=== PATIENT | female | born 1980 | race Caucasian/White ===

== ENCOUNTER 2020-12-15 00:23 | Emergency (ER) | payer OTHER ==
[2020-12-15 01:25] LABS: BILIRUBIN NEGATIVE (NEGATIVE); BLOOD 3+ Ery/uL (NEGATIVE); CLARITY CLEAR (CLEAR); COLOR YELLOW (YELLOW); GLUCOSE (U) NORMAL (NORMAL); LEUKOCYTES NEGATIVE Leu/uL (NEGATIVE); NITRITE NEGATIVE (NEGATIVE); PROTEIN 1+ mg/dL (NEGATIVE); SPECIFIC GRAVITY >=1.030 (1.001-1.030)
[2020-12-15 01:34] LABS: BACTERIA 3+; URINARY RBC TNTC
[2020-12-15 02:11] LABS: BASOPHIL 0.3 % (0-2); HCT 42.6 % (37.0-47.0); HGB 14.2 g/dl (12.5-16.0); LYMPHOCYTE 16.1 % (15-48); MCH 30.9 pg (25.0-31.0); MCHC 33.3 g/dL (32.0-36.0); MCV 92.6 fL (78.0-100.0); MONOCYTE 6.1 % (0-12); NEUTROPHIL 75.1 % (41-80); NRBC 0; PLT 271 K/uL (150-400); RDW 13.5 % (11.5-14.0)
[2020-12-15 02:28] LABS: ALBUMIN 3.6 g/dL (3.4-5.0); BILIRUBIN - TOTAL 0.2 mg/dL (0.2-1.0); BUN/CREAT RATIO (CALC) 19.4 RATIO; CREATININE 0.72 mg/dL (0.51-0.95); GLOBULIN (CALCULATION) 3.7 g/dL; POTASSIUM 3.6 mmol/L (3.5-5.1); TOTAL PROTEIN 7.3 g/dL (6.4-8.2)
[2020-12-15] MEDS ORDERED: NORCO 5-325 TA1 EACH PO (04:23)
[2020-12-15] MEDS ORDERED: FLOMAX0.4 MG PO (04:23)
[2020-12-15] MEDS ORDERED: ONDANSETRON ODT4 MG SL (04:23)
[2020-12-15] MEDS ORDERED: IBUPROFEN800 MG PO (04:23)
== END 2020-12-15 04:33 | disposition home or self-care (01) ==
LOC: FER 00:23
PROVIDERS: Emergency Medicine Emergency Medical Services
DX: N13.2 Hydronephrosis with renal and ureteral calculous obstruction (principal); F17.210 Nicotine dependence, cigarettes, uncomplicated; Z87.442 Personal history of urinary calculi; Z88.8 Allergy status to other drugs, medicaments and biological substances
CPT/HCPCS: 36415; 80053; 81001; 85025